=== PATIENT | male | born 1960 | race American Indian/Alaskan Native ===

== ENCOUNTER 2021-04-10 09:17 | Outpatient (CLI) | payer OTHER ==
--- NOTE | 2021-04-10 10:17 | XRay Report ---
LUMBAR SPINE 3 VIEWS INDICATION / CLINICAL INFORMATION: BACK PAIN. COMPARISON: None available. FINDINGS: VERTEBRAE: No acute fracture. There is grade 1 anterolisthesis of L5 on S1 secondary to bilateral par s interarticularis defects. DISC SPACES / FACET JOINTS:There is moderate to severe degenerative disc disease at L5-S1. There is d egenerative facet disease at L5-S1. PARASPINAL SOFT TISSUES:No significant abnormality. ADDITIONAL FINDINGS: None. Signer Name: Abraham Serrato DO Signed: 04/10/2021 10:12 AM Workstation Name: [id number]
== END 2021-04-10 09:18 | disposition home or self-care (01) ==
LOC: XRAY 09:17
PROVIDERS: ATTEND Internal Medicine
DX: M51.37 Other intervertebral disc degeneration, lumbosacral region (principal)
CPT/HCPCS: 72110

== ENCOUNTER 2021-09-09 10:07 | Outpatient (CLI) | payer OTHER ==
--- NOTE | 2021-09-09 12:25 | XRay Report ---
LUMBAR SPINE 6 VIEWS INDICATION / CLINICAL INFORMATION: BACK PAIN. COMPARISON: 04/10/2021 FINDINGS: VERTEBRAE: No acute fracture. Redemonstrated grade 1 anterolisthesis of L5 on S1 secondary to bilater al pars interarticularis defects. DISC SPACES / FACET JOINTS:Moderate to severe degenerative disc disease of L5-S1. Degenerative facet disease at L5-S1. PARASPINAL SOFT TISSUES:No significant abnormality. ADDITIONAL FINDINGS: None. Signer Name: Abraham eSrrato DO Signed: 09/09/2021 12:21 PM Workstation Name: [id number]
== END 2021-09-09 10:08 | disposition home or self-care (01) ==
LOC: XRAY 10:07
PROVIDERS: ATTEND Internal Medicine
DX: M47.817 Spondylosis without myelopathy or radiculopathy, lumbosacral region (principal); M43.16 Spondylolisthesis, lumbar region
CPT/HCPCS: 72110